=== PATIENT | male | born 1985 | race Caucasian/White ===

== ENCOUNTER 2020-10-25 20:02 | Emergency (ER) | payer BC ==
[~2020-10-25] VITALS: Ht 170.2 cm; Wt 72.7 kg
[2020-10-25 20:42] VITALS: BP 154/89; PULSE 86; TEMP 98.2
== END 2020-10-25 22:03 | disposition left against medical advice (07) ==
LOC: COL.ER 20:02
DX: S81.851A Open bite, right lower leg, initial encounter (principal); W54.0XXA Bitten by dog, initial encounter